=== PATIENT | female | born 1980 | race Caucasian/White ===

== ENCOUNTER 2020-10-02 05:09 | Day surgery (SDC) | payer BC, OTHER ==
[2020-09-28 15:19] VITALS: BMI 29.8
[2020-10-02] MEDS ORDERED: MIDAZOLAM HCL 2 MG/2 ML SINGLE DOSE VIAL ONE (09:20)
[2020-10-02] MEDS ORDERED: PROPOFOL 20 ML ONE ×2 (09:20)
[2020-10-02] MEDS ORDERED: ROCURONIUM BROMIDE 50 MG/5 ML SYRINGE ONE (09:20)
[2020-10-02] MEDS ORDERED: oxyCODONE HCL 5 MG TABLET PO PRN (09:38)
[2020-10-02] MEDS ORDERED: ONDANSETRON 4 MG/2 ML VIAL IVPUSH PRN (09:38)
[2020-10-02] MEDS ORDERED: LACTATED RINGERS SOLUTION 1,000 ML IV SCH (09:45)
[2020-10-02] MEDS ORDERED: ceFAZolin SODIUM 1 GM VIAL IVPB ONE (10:07)
[2020-10-02] MEDS ORDERED: ceFAZolin SODIUM 1 GM VIAL ONE (10:16)
[2020-10-02] MEDS ORDERED: DEXAMETHASONE SOD PHOSPHATE 4 MG/1 ML VIAL ONE (10:17)
[2020-10-02] MEDS ORDERED: NEOSTIGMINE METHYLSULFATE 0.5 MG/ML - 10 ML MDV ONE (10:54)
[2020-10-02] MEDS ORDERED: GLYCOPYRROLATE 0.2 MG/1 ML VIAL ONE (10:54)
[2020-10-02] MEDS ORDERED: BUPIVACAINE HCL/PF 0.5% (5MG/ML) 10 ML VIAL IJ ONE (10:56)
[2020-10-02 18:17] VITALS: BP 114/69; PULSE 88; TEMP 98.5
== END 2020-10-02 15:00 | disposition home or self-care (01) ==
LOC: JASU-SURG 05:09
PROVIDERS: ATTEND Obstetrics & Gynecology
PROC: 0UT74ZZ Resection of Bilateral Fallopian Tubes, Percutaneous Endoscopic Approach (ICD-10-PCS; principal; 2020-10-02 10:01)
DX: Z30.2 Encounter for sterilization (principal)
CPT/HCPCS: 81025; 88302-TC; 94760